=== PATIENT | female | born 1950 ===

== ENCOUNTER → 2020-07-22 14:33 | Outpatient (CLI) | payer OTHER | END | disposition home or self-care (01) | LOC: LAB 14:33 | PROVIDERS: ATTEND Radiology Diagnostic Radiology | DX: N20.0 Calculus of kidney (principal) ==

== ENCOUNTER 2020-08-06 07:39 | Outpatient (CLI) | payer OTHER | END 2020-08-06 08:01 | disposition home or self-care (01) | LOC: TOM 07:39 | PROVIDERS: ATTEND Obstetrics & Gynecology | DX: R10.2 Pelvic and perineal pain (principal); R10.84 Generalized abdominal pain; R19.00 Intra-abdominal and pelvic swelling, mass and lump, unspecified site; M81.0 Age-related osteoporosis without current pathological fracture; E07.89 Other specified disorders of thyroid ==